=== PATIENT | male | born 1965 | race African-American/Black ===

== ENCOUNTER 2021-12-17 08:57 | Emergency (ER) | payer OTHER ==
[~2021-12-17] VITALS: Ht 172.7 cm; Wt 63.0 kg
--- NOTE | 2021-12-17 09:06 | PHYS DOC ---
Adult General Chief Complaint Chief Complaint: OVERDOSE HPI HPI Patient is a 56-year-old male presenting via EMS for drug overdose. Patient lives at local [facility] living [facility], [place] that [place] was nauseous with several episodes of witnessed nonbloody nonbilious emesis. He was found to be slurring his words and not at his baseline without any obvious trauma/falls concerning staff prompting them to call EMS. On arrival, patient found to be hemodynamically stable and so he was subsequently transported to our facility. On arrival, patient has no complaints. Admits history of mental health diseases for which she takes medications for daily, no other diagnosed medical conditions and takes no other medications on a daily basis. Denies tobacco alcohol or illicit drug abuse. Review of Systems Review of Systems Fourteen body systems of review of systems have been reviewed. See HPI for pertinent positives and negative responses, other mckinley all other systems are negative, non-pertinent or non-contributory Physical Exam Physical Exam Constitutional: Well developed, well nourished, no acute distress, non-toxic appearance. Appears under the influence of unknown medication HENT: Normocephalic, atraumatic, bilateral external ears normal, oropharynx moist, no oral exudates, nose normal. Eyes: PERRLA, EOMI, conjunctiva normal, no discharge. Neck: Normal range of motion, no tenderness, supple, no stridor. Cardiovascular: Heart rate regular, sinus rhythm, no murmurs rubs or gallops Lungs & Thorax: Bilateral breath sounds clear to auscultation Abdomen: Bowel sounds normal, soft, no tenderness, no masses, no pulsatile masses. Nonsurgical abdomen, no peritoneal signs Skin: Warm, dry, no erythema, no rash. Back: No tenderness, no CVA tenderness. Extremities: No tenderness, no cyanosis, no clubbing, ROM intact, no edema. Neurologic: Alert and oriented X 3, cranial nerves II through XII intact, normal motor & sensory function, no focal deficits noted. Psychologic: Slowed affect, normal mood Current Patient Data Vital Signs Vital Signs Date Time Temp Pulse Resp B/P (MAP) Pulse Ox O2 Delivery O2 Flow Rate FiO2 12/17/21 11:44 97.8 87 18 114/82 (93) 97 Room Air Vital Signs Date Time Temp Pulse Resp B/P (MAP) Pulse Ox O2 Delivery O2 Flow Rate FiO2 12/17/21 11:44 97.8 87 18 114/82 (93) 97 Room Air Lab Results Laboratory Tests Test 12/17/21 09:15 12/17/21 10:05 White Blood Count 4.8 x10^3/uL Red Blood Count 4.45 x10^6/uL Hemoglobin 12.8 g/dL Hematocrit 38.7 % Mean Corpuscular Volume 87 fL Mean Corpuscular Hemoglobin 29 pg Mean Corpuscular Hemoglobin Concent 33 g/dL Red Cell Distribution Width 13.8 % Platelet Count 199 x10^3/uL Neutrophils (%) (Auto) 62 % Lymphocytes (%) (Auto) 28 % Monocytes (%) (Auto) 8 % Eosinophils (%) (Auto) 1 % Basophils (%) (Auto) 0 % Neutrophils # (Auto) 3.0 x10^3uL Lymphocytes # (Auto) 1.4 x10^3/uL Monocytes # (Auto) 0.4 x10^3/uL Eosinophils # (Auto) 0.1 x10^3/uL Basophils # (Auto) 0.0 x10^3/uL Sodium Level 136 mmol/L Potassium Level 3.6 mmol/L Chloride Level 101 mmol/L Carbon Dioxide Level 25 mmol/L Anion Gap 10 Blood Urea Nitrogen 15 mg/dL Creatinine 1.1 mg/dL Estimated GFR (Cockcroft-Gault) 68.8 Glucose Level 150 mg/dL Calcium Level 8.5 mg/dL Magnesium Level 2.1 mg/dL Salicylates Level 2.7 mg/dL Salicylate Last Dose Date Unknown Salicylate Last Dose Time Unknown Acetaminophen Level < 2.0 mcg/mL Acetaminophen Last Dose Date Unknown Acetaminophen Last Dose Time Unknown Ethyl Alcohol Level < 10 mg/dL Urine Opiates Screen Neg Urine Methadone Screen Neg Urine Barbiturates Neg Urine Phencyclidine Screen Neg Urine Amphetamine/Methamphetamine Neg Urine Benzodiazepines Screen Neg Urine Cocaine Screen Neg Urine Cannabinoids Screen Neg Urine Ethyl Alcohol Neg EKG EKG EKG ordered and interpreted by myself at 1023 hrs. as sinus rhythm at 83 bpm, unremarkable intervals, no axis deviation, no acute ischemic findings, no STEMI Radiology/Procedures Radiology/Procedures INDICATION: Reason: ams, overdose, nausea and vomit / Spl. Instructions: / History: COMPARISON: None. TECHNIQUE: Axial CT images obtained through the head without intravenous contrast. One or more of the following individualized dose reduction techniques were utilized for this examination: 1. Automated exposure control; 2. Adjustment of the mA and/or kV according to patient size; 3. Use of iterative reconstruction technique. FINDINGS: No intracranial hemorrhage. No significant midline shift. Ventricles and sulci are globally prominent. Scattered foci of low attenuation within the white matter. Basal ganglia calcifications. There is deviation of the right medial orbital wall with extraconal fat extending into the region. Could be from old fracture to the area. IMPRESSION: * No acute intracranial hemorrhage. * Scattered regions of low attenuation within the white matter. Non-specific in nature but a common finding and frequently secondary to small vessel ischemic disease. Electronically signed by: Ruben Calabrese MD (12/17/2021 9:56 AM) [id number] Heart Score C/O Chest Pain: No Risk Factors: Risk Factors: DM, Current or recent (<one month) smoker, HTN, HLP, family history of CAD, obesity. Risk Scores: Risk Factors: DM, Current or recent (<one month) smoker, HTN, HLP, family history of CAD, obesity. Course & Med Decision Making Course & Med Decision Making ABCs unremarkable HPI limited, physical exam and comprehensive ER work-up nonconcerning for any emergent or surgical issues. I reviewed entirety of ER work-up with patient that was unremarkable. Patient returned to baseline. Continued to deny any drug use. It was reported from sending facility that patient likely overdosed on K2 as this has been prevalent there Ultimately, I disclose little indication for further diagnostic work-up and/or need for hospitalization, patient agreed. I advised him to avoid any tobacco, alcohol or illicit drug use and follow-up with primary care physician in outpatient setting regarding episode today. Strict return precautions discussed at length with good understanding prior to ER departure Umer Disclaimer Umer Disclaimer This electronic medical record was generated, in whole or in part, using a voice recognition dictation system. Departure Departure: Impression: Primary Impression: Altered mental status Disposition: 01 HOME / SELF CARE / HOMELESS Condition: IMPROVED Additional Instructions: As discussed prior to ER departure, your vitals, physical exam and comprehensive ER work-up were nonconcerning for any emergent or surgical issues. There is no indication for further diagnostic work-up and/or need for hospitalization. You are returned to baseline mentation without issue and/or ER intervention. Please contact your primary care physician to review ER visit today and need for close outpatient follow-up. Any concerning signs or symptoms present prior to outpatient follow-up please do not hesitate to come back for repeat evaluation. It was pleasure to take care of you and I wish you the best going forward BARBARA ALEXANDER DO Dec 17, 2021 09:06
[2021-12-17 09:41] LABS: BASO % 0 % (0-3); EOS # 0.1 x10^3/uL (0.0-0.7); EOS % 1 % (0-3); HEMATOCRIT 38.7 % (39.0-53.0); HEMOGLOBIN 12.8 g/dL (13.0-17.5); LYMPH # 1.4 x10^3/uL (1.0-4.8); LYMPH % 28 % (24-48); MEAN CORPUSCULAR HEMOGLOBIN 29 pg (25-35); MEAN CORPUSCULAR HGB CONC 33 g/dL (31-37); MEAN CORPUSCULAR VOLUME 87 fL (79-100); MONO # 0.4 x10^3/uL (0.0-1.1); MONO % 8 % (0-9); NEUT % 62 % (31-73); PLATELET COUNT 199 x10^3/uL (140-400); RED BLOOD COUNT 4.45 x10^6/uL (4.30-5.70); RED CELL DISTRIBUTION WIDTH 13.8 % (11.5-14.5); WHITE BLOOD COUNT 4.8 x10^3/uL (4.0-11.0)
[2021-12-17 09:50] LABS: CALCIUM 8.5 mg/dL (8.5-10.1); CREATININE 1.1 mg/dL (0.7-1.3); GFR 68.8; MAGNESIUM 2.1 mg/dL (1.8-2.4); POTASSIUM 3.6 mmol/L (3.5-5.1)
--- NOTE | 2021-12-17 09:50 | RAD ---
INDICATION: Reason: overdose / Spl. Instructions: / History: COMPARISON: None. FINDINGS: Single view of chest obtained. No focal airspace consolidation. Cardiomediastinal contour unremarkable. No acute osseous abnormality. IMPRESSION: * No focal airspace consolidation or edema. Electronically signed by: Ruben Calabrese MD (12/17/2021 9:47 AM) [id number]
[2021-12-17 09:57] LABS: ACETAMIN < 2.0 mcg/mL (10-30); ETHANOL < 10 mg/dL (0-10); SALIC 2.7 mg/dL (2.8-20.0)
--- NOTE | 2021-12-17 09:58 | RAD ---
INDICATION: Reason: ams, overdose, nausea and vomit / Spl. Instructions: / History: COMPARISON: None. TECHNIQUE: Axial CT images obtained through the head without intravenous contrast. One or more of the following individualized dose reduction techniques were utilized for this examinat ion: 1. Automated exposure control; 2. Adjustment of the mA and/or kV according to patient size; 3 . Use of iterative reconstruction technique. FINDINGS: No intracranial hemorrhage. No significant midline shift. Ventricles and sulci are globally prominent. Scattered foci of low attenuation within the white matter. Basal ganglia calcifications. There is deviation of the right medial orbital wall with extraconal fat extending into the region. Co uld be from old fracture to the area. IMPRESSION: * No acute intracranial hemorrhage. * Scattered regions of low attenuation within the white matter. Non-specific in nature but a common finding and frequently secondary to small vessel ischemic disease. Electronically signed by: Ruben Calabrese MD (12/17/2021 9:56 AM) [id number]
--- NOTE | 2021-12-17 10:39 | EKG ---
[address] [address] Test Date: 2021-12-17 Test Time: 10:19:21 Pat Name: JULIA CURRAN Department: Room: Gender: M [employer] Dies: MARNI : 1965 Requested By: BARBARA ALEXANDER Order Number: [id number] Reading MD: Measurements Intervals Midnight Rate: 83 P: 58 MN: 162 QRS: 55 QRSD: 80 T: 36 QT: 348 QTc: 409 Interpretive Statements SINUS RHYTHM OTHERWISE NORMAL ECG RI6.01 No previous ECG available for comparison
[2021-12-17 10:40] LABS: BARBITURATES NEG (NEG); BENZODIAZEPINES NEG (NEG); CANNABINOIDS NEG (NEG); COCAINE NEG (NEG); METHADONE NEG (NEG); OPIATES NEG (NEG); PHENCYCLIDINE NEG (NEG)
[2021-12-17 10:41] LABS: AMPHETAMINE/METHAMPHETAMINE NEG (NEG)
[2021-12-17 11:06] LABS: CLARITY,URINE HAZY; COLOR,URINE YELLOW; GLUCOSE,URINE NEG (NEG)
[2021-12-17 11:07] LABS: BACTERIA,URINE 0 /HPF (0-FEW); NITRITE,URINE NEG (NEG); SQUAMOUS EPITHELIAL CELL,UR OCC /LPF
[2021-12-17 11:08] LABS: HYALINE CASTS, URINE FEW /HPF
[2021-12-17 11:44] VITALS: BP 114/82
== END 2021-12-17 11:02 | disposition home or self-care (01) ==
LOC: ER 08:57
DX: R41.82 Altered mental status, unspecified (principal); R11.2 Nausea with vomiting, unspecified; R47.81 Slurred speech
CPT/HCPCS: 36415; 70450; 71045; 80048; 80307; 80329; 81001; 83735; 85025; 93005; 99285; G0480